=== PATIENT | female | born 1965 | race Hispanic/Latino ===

== ENCOUNTER 2016-07-24 20:04 | Emergency (ER) | payer MEDICAID, OTHER ==
[2016-07-24 20:05] VITALS: BMI 19.3
[2016-07-24 20:31] VITALS: BP 129/76; PULSE 82; RESP 22; TEMP 98.2; O2SAT 100
--- NOTE | 2016-07-24 20:57 | C.PDOC ---
History Of Present Illness 51 year old patient presents to the ED complaining of generalized skin rashes that have been ongoing for the past year. Patient states she [place] in an area that was undergoing construction. She thinks it caused mites to get under her skin. She has itchy rashes and states she bugs are in her "belly button, ears, and feces." She was seen by a marshmallow machine worker who told her it was a sand flee and prescribed her permetherin for the rashes. She reports she has new scabs after staying at her friend's place recently. Patient denies nausea, vomiting, fever or chills. 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." Time Seen by Provider: 07/24/16 20:39 Chief Complaint (Nursing): Abnormal Skin Integrity History Per: Patient History/Exam Limitations: no limitations Onset/Duration Of Symptoms: Other (past year) Current Symptoms Are (Timing): Still Present Quality Of Symptoms: Itching Severity: Mild Pain Scale Rating Of: 3 Recent travel outside of the [place]: No Past Medical History Reviewed: Historical Data, Nursing Documentation, Vital Signs Vital Signs: Last Vital Signs Temp 98.2 F 07/24/16 20:27 Pulse 82 07/24/16 20:27 Resp 22 07/24/16 20:27 BP 129/76 07/24/16 20:27 Pulse Ox 100 07/24/16 21:43 - Medical History PMH: Anxiety, Asthma, Back Problems, Fractures, Seizures - [facility] Procedures DETOXIFICATION SERVICES FOR SUBSTANCE ABUSE TREATMENT (01/18/15) GROUP AGENCY MANAGER FOR SUBSTANCE ABUSE, MOTIVATIONAL ENHANCE (01/18/15) Family History: States: Unknown Family Hx - Social History Hx Tobacco Use: No Hx Alcohol Use: No Hx Substance Use: Yes - Immunization History Hx Tetanus Toxoid Vaccination: No Hx Influenza Vaccination: No Hx Pneumococcal Vaccination: No Review Of Systems Except As Marked, All Systems Reviewed And Found Negative. Constitutional: Negative for: Fever, Chills Gastrointestinal: Negative for: Nausea, Vomiting Skin: Positive for: Rash (generalized) Physical Exam - Physical Exam Appears: Non-toxic, No Acute Distress Skin: Warm, Dry, Other (0.5 cm macules in different stages of healing with excoriations. (-) discharge (-) erythema) Head: Atraumatic, Normacephalic Eye(s): bilateral: Normal Inspection, PERRL, EOMI Ear(s): Bilateral: Normal Nose: Normal Oral Mucosa: Moist Throat: Normal, No Erythema, No Exudate Neck: Normal ROM, Supple Chest: Symmetrical Cardiovascular: Rhythm Regular Respiratory: Normal Breath Sounds, No Rales, No Rhonchi, No Wheezing Gastrointestinal/Abdominal: Soft, No Tenderness, No Guarding, No Rebound, Other (No umbilical wounds ) Back: Normal Inspection, No CVA Tenderness Extremity: Normal ROM Neurological/Psych: Oriented x3, Normal Sensation Gait: Steady ED Course And Treatment O2 Sat by Pulse Oximetry: 100 (room air) Pulse Ox Interpretation: Normal Progress Note: Patient is advised to look into other living arrangements if her current home is causes her symptoms to flare up. She is discharged and instructed to follow up with a marshmallow machine worker for further evaluation. A list of providers was given. Return if symptoms worsen. Disposition - Disposition Disposition: HOME/ ROUTINE Disposition Time: 20:55 Condition: STABLE Additional Instructions: Follow up with your primary medical doctor or clinic in 2-5 days for further evaluation. Take medications as prescribed. Return to the emergency department at any time if symptoms persist or worsen. Prescriptions: Permethrin 5% [Permethrin 5% Cream] 1 applic TOP ONCE #1 tube Instructions: Acute Rash (ED) - Clinical Impression Clinical Impression: Rash - PA / LION TAMER / Resident Statement MD/DO has reviewed & agrees with the documentation as recorded. - Scribe Statement The provider has reviewed the documentation as recorded by the Scribe Valentine Sweeney All medical record entries made by the Scribe were at my direction and personally dictated by me. I have reviewed the chart and agree that the record accurately reflects my personal performance of the history, physical exam, medical decision making, and the department course for this patient. I have also personally directed, reviewed, and agree with the discharge instructions and disposition.
== END 2016-07-24 21:11 | disposition home or self-care (01) ==
LOC: C.ER 20:04
DX: R21 Rash and other nonspecific skin eruption (principal)

== ENCOUNTER 2017-12-12 13:27 | Emergency (ER) | payer MEDICAID ==
[2017-12-12 13:32] VITALS: BMI 19.3
[2017-12-12 13:50] VITALS: BP 123/83; PULSE 87; RESP 18; TEMP 98.9; O2SAT 96
--- NOTE | 2017-12-12 15:02 | C.PDOC ---
History Of Present Illness Patient is a poor historian, has pressured and tangential speech, sometimes repeating the same things over and over. States that she recently went back into her old apartment to get her stuff so she can move, the apartment had previously been condemned because of a parasite infestation. She previously became infected by these parasites, "they are inside me". Also states that the apartment had "some sort of mite or flea" that "burrows into my skin". She has been seen by dermatology and states that they started her on Ivermectin and Permethrin but "they were uncomfortable giving me the full dose of Ivermectin". She is no longer on these medications since she left her apartment, but now that she went back to retrieve her things, she has new bites from these mites/fleas. States that she went to Dr. Carpenter's office today and that they sent her to the ED. Also states that she has not been able to refill her Xanax and that she feels very anxious because her fiance two weeks ago. Time Seen by Provider: 12/12/17 14:34 Chief Complaint (Nursing): Abnormal Skin Integrity Past Medical History Vital Signs: Last Vital Signs Temp 98.9 F 12/12/17 13:44 Pulse 87 12/12/17 13:44 Resp 18 12/12/17 13:44 BP 123/83 12/12/17 13:44 Pulse Ox 96 12/12/17 13:44 - Medical History PMH: Anxiety, Asthma, Back Problems, Fractures, Seizures Denies: Diabetes, Hepatitis, HIV, HTN, Chronic Kidney Disease, Sexually Transmitted Disease - [facility] Procedures DETOXIFICATION SERVICES FOR SUBSTANCE ABUSE TREATMENT (01/18/15) GROUP CORE MAN FOR SUBSTANCE ABUSE, MOTIVATIONAL ENHANCE (01/18/15) Family History: States: Unknown Family Hx - Social History Hx Tobacco Use: No Hx Alcohol Use: No Hx Substance Use: Yes (DENIES) - Immunization History Hx Tetanus Toxoid Vaccination: No Hx Influenza Vaccination: No Hx Pneumococcal Vaccination: No Review Of Systems Except As Marked, All Systems Reviewed And Found Negative. Constitutional: Negative for: Fever Cardiovascular: Negative for: Chest Pain Respiratory: Negative for: Cough, Shortness of Breath Gastrointestinal: Negative for: Nausea, Vomiting Skin: Positive for: Rash, Lesions Psych: Positive for: Anxiety. Negative for: Suicidal ideation Physical Exam - Physical Exam Appears: Unkempt, Other (anxious) Skin: Rash (Several scattered 0.25-1cm macules with excoriation to various part of her legs, wrists, upper back, and breasts.) Eye(s): bilateral: Normal Inspection Chest: Symmetrical Cardiovascular: Rhythm Regular Respiratory: Normal Breath Sounds Gastrointestinal/Abdominal: Normal Exam Neurological/Psych: Oriented x3, Other (Appears anxious, pressured/tangential/repetitive speech) ED Course And Treatment O2 Sat by Pulse Oximetry: 96 Medical Decision Making Medical Decision Making: Explained to the patient that we cannot prescribe medications without a confirmed diagnosis. Patient states that she would like to be discharged to go back to her neuro intensivist physician's office. Requesting something for anxiety, 1mg Xanax PO (home dose) given. Patient stable for discharge. Disposition - Disposition Disposition: HOME/ ROUTINE Disposition Time: 15:20 Condition: FAIR Additional Instructions: JANNA MENDEZ, thank you for letting us take care of you today. Your provider was Jessica Hilton MD and you were treated for RASH. The emergency medical care you received today was directed at your acute symptoms. If you were prescribed any medication, please fill it and take as directed. It may take several days for your symptoms to resolve. Return to the Emergency Department if your symptoms worsen, do not improve, or if you have any other problems. Please contact your doctor or call one of the physicians/clinics you have been referred to that are listed on the Patient Visit Information form that is included in your discharge packet. Bring any paperwork you were given at discharge with you along with any medications you are taking to your follow up visit. Our treatment cannot replace ongoing medical care by a primary care provider outside of the emergency department. Thank you for allowing the [facility] team to be part of your care today. If you had an X-Ray or CT scan: A Radiologist will review the ED reading if any change in treatment is needed we will contact you. If you had a blood, urine, or wound culture: It will take several days for the results, if any change in treatment is needed we will contact you. If you had an STI test: It will take 48 hours for the results. Please call after 1 week if you have not heard back. Instructions: Anxiety, Adult (DC), Insect Bites and Stings (DC) Forms: [facility] ([place]) - Clinical Impression Clinical Impression: Anxiety, Insect bite, Skin lesion
== END 2017-12-12 15:33 | disposition home or self-care (01) ==
LOC: C.ER 13:27
DX: F41.9 Anxiety disorder, unspecified (principal); L98.9 Disorder of the skin and subcutaneous tissue, unspecified; S80.869A Insect bite (nonvenomous), unspecified lower leg, initial encounter; S60.869A Insect bite (nonvenomous) of unspecified wrist, initial encounter; S20.469A Insect bite (nonvenomous) of unspecified back wall of thorax, initial encounter; S20.169A Insect bite (nonvenomous) of breast, unspecified breast, initial encounter; W57.XXXA Bitten or stung by nonvenomous insect and other nonvenomous arthropods, initial encounter; Y92.89 Other specified places as the place of occurrence of the external cause

== ENCOUNTER 2017-12-13 19:40 | Emergency (ER) | payer MEDICAID ==
[2017-12-13 19:40] VITALS: BMI 19.3
[2017-12-13 20:25] VITALS: BP 153/81; PULSE 92; RESP 20; TEMP 99.3; O2SAT 96
--- NOTE | 2017-12-13 22:14 | C.PDOC ---
History Of Present Illness 52 y/o female comes to ed c/o rash to torso, hands, breasts and left second toe pain. pt seen in ed twice in last few days and has not follow up outpatient, c/o worsening rash. no fever. pt is poor historian. Time Seen by Provider: 12/13/17 20:28 Chief Complaint (Nursing): Abnormal Skin Integrity History/Exam Limitations: no limitations Onset/Duration Of Symptoms: Days Current Symptoms Are (Timing): Worse Location Of Injury: Left: Foot Quality Of Symptoms: Itching Past Medical History Reviewed: Historical Data, Nursing Documentation, Vital Signs Vital Signs: Last Vital Signs Temp 99.3 F 12/13/17 20:17 Pulse 92 H 12/13/17 20:17 Resp 20 12/13/17 20:17 BP 153/81 H 12/13/17 20:17 Pulse Ox 96 12/13/17 20:17 - Medical History PMH: Anxiety, Asthma, Back Problems, Fractures, Seizures Denies: Diabetes, Hepatitis, HIV, HTN, Chronic Kidney Disease, Sexually Transmitted Disease - [facility] Procedures DETOXIFICATION SERVICES FOR SUBSTANCE ABUSE TREATMENT (01/18/15) GROUP WRAPPER REWINDER FOR SUBSTANCE ABUSE, MOTIVATIONAL ENHANCE (01/18/15) Family History: States: Unknown Family Hx - Social History Hx Tobacco Use: No Hx Alcohol Use: No Hx Substance Use: No - Immunization History Hx Tetanus Toxoid Vaccination: No Hx Influenza Vaccination: No Hx Pneumococcal Vaccination: No Review Of Systems Constitutional: Negative for: Fever, Chills Cardiovascular: Negative for: Chest Pain Respiratory: Negative for: Cough, Shortness of Breath Skin: Positive for: Rash Neurological: Negative for: Weakness, Numbness Physical Exam - Physical Exam Appears: Non-toxic, No Acute Distress, Unkempt, Other Skin: Warm, Dry, Other (multiple 0.2- 0.5 cm scattered areas of erythema/scab to arms, legs, breasts. 1-2 mm ulceration to tip of left toe,no drainage. ) Head: Atraumatic, Normacephalic Neurological/Psych: Oriented x3, Normal Speech, Normal Cognition ED Course And Treatment O2 Sat by Pulse Oximetry: 96 Medical Decision Making Medical Decision Making: discussed with patient that she needs to f/u with pmd, podiatry and dermatolgy. will start on po antibiotics and topical antibiotics. pt agrees with plan. Disposition Counseled Patient/Family Regarding: Diagnosis, Need For Followup, Rx Given - Disposition Referrals: [facility] [Outside] Disposition: HOME/ ROUTINE Disposition Time: 22:10 Condition: GOOD Additional Instructions: Please take antibiotics and apply antibiotic cream to wounds 2 times a day. F ollow up with medical clinic, wire coiner and podiatry clinic. Return to ER for worsening rash, fever. Prescriptions: Cephalexin [cephalexin] 500 mg PO Q6 #28 cap Mupirocin 2% Cream [Bactroban Cream] 30 applic TOP BID #1 tube Instructions: Skin Rash (DC) Forms: [facility] ([place]), General Discharge Instructions - Clinical Impression Clinical Impression: Rash and nonspecific skin eruption
== END 2017-12-13 22:47 | disposition home or self-care (01) ==
LOC: C.ER 19:40
DX: R21 Rash and other nonspecific skin eruption (principal)